=== PATIENT | male | born 1980 | race Native Hawaiian/Other Pacific Islander ===

== ENCOUNTER 2022-08-28 10:59 | Emergency (ER) | payer OTHER ==
[~2022-08-28] VITALS: Ht 175.3 cm; Wt 95.9 kg
[2022-08-28 11:10] VITALS: TEMP 99.6
[2022-08-28 11:54] LABS: PLATELET COUNT 138 K/uL (142-355)
[2022-08-28 11:59] LABS: POTASSIUM 3.7 mmol/L (3.6-5.2)
[2022-08-28 13:51] VITALS: BP 139/72
== END 2022-08-28 14:00 | disposition home or self-care (01) ==
LOC: ED 10:59
PROVIDERS: Emergency Medicine Emergency Medical Services
DX: N23 Unspecified renal colic (principal); F17.210 Nicotine dependence, cigarettes, uncomplicated
CPT/HCPCS: 36415; 80048; 80307; 81002; 85027; 96361; 96374; 96375; 99284; J1885; J2270; J2405